=== PATIENT | male | born 1945 | race Asian ===

== ENCOUNTER 2016-09-07 15:49 | Inpatient (IN) | payer OTHER ==
[~2016-09-07] VITALS: Ht 167.6 cm; Wt 66.2 kg
[2016-09-07 17:13] LABS: BASOPHIL % 0.2 % (0-2); PLATELET COUNT 136 x10^3mcL (130-400); RED CELL DISTRIBUTION WIDTH 14.3 % (11.5-14.5)
[2016-09-07 17:28] LABS: CALCIUM 8.4 mg/dL (8.5-10.1); CARBON DIOXIDE 25.3 mmol/L (21-32); CHLORIDE SERUM 101 mmol/L (98-107); CREATININE SERUM 1.2 mg/dL (0.7-1.3); GFR1 > 60 mL/min; GLUCOSE SERUM 125 mg/dL (74-106); POTASSIUM SERUM 3.6 mmol/L (3.5-5.1); SODIUM SERUM 135 mmol/L (136-145)
[2016-09-07 17:32] LABS: ALBUMIN 2.9 g/dL (3.4-5.0); ALKALINE PHOSPHATASE 72 U/L (46-116); ALT/SGPT 89 U/L (16-63); AST/SGOT 136 U/L (15-37); BILIRUBIN TOTAL 0.75 mg/dL (0.20-1.00); CHOLESTEROL 134 mg/dL (<200); HDL CHOLESTEROL 56 mg/dL (40-60); TOTAL PROTEIN, SERUM 6.6 g/dL (6.4-8.2)
[2016-09-07 17:36] LABS: UA SPECIFIC GRAVITY >=1.030 (1.005-1.035); microscopic required? YES; urine erythrocyte 3+ (NEGATIVE)
[2016-09-07 20:07] VITALS: BP 126/68
[2016-09-07 20:15] LABS: T3 TOTAL 0.58 ng/mL
[2016-09-07 20:44] LABS: PHOSPHOROUS 2.6 mg/dL (2.5-4.9)
[2016-09-07 20:52] LABS: CHOLESTEROL/HDL RATIO 2.4
[2016-09-07 20:53] LABS: FREE T4 2.02 ng/dL (0.76-1.46)
[2016-09-07 21:00] LABS: FREE THYROXINE INDEX 5.1 ug/dL (1.4-4.5); T4(THYROXINE) 14.5 ug/dL (4.7-13.3)
[2016-09-07 21:21] VITALS: BP 126/68
[2016-09-07] MEDS ORDERED: LEVOCETIRIZINE D5 M1 PO (21:27)
[2016-09-07] MEDS ORDERED: DITROPAN XL5 MG PO (21:28)
[2016-09-07] MEDS ORDERED: ARICEPT5 MG PO (21:28)
[2016-09-07] MEDS ORDERED: CLOPIDOGREL75 M1 PO (21:29)
[2016-09-07] MEDS ORDERED: ISOSORBIDE MONO30 MG PO (21:30)
[2016-09-07] MEDS ORDERED: LIPI10 PO (21:30)
[2016-09-07] MEDS ORDERED: NATURE'S BLEND F1 MG PO (21:31)
[2016-09-07] MEDS ORDERED: AMIODARONE HCL200 MG PO (21:31)
[2016-09-07] MEDS ORDERED: METFORMIN HCL500 MG PO ×2 (21:31→21:33)
[2016-09-07] MEDS ORDERED: FLO4 PO (21:33)
[2016-09-07] MEDS ORDERED: FINASTERIDE5 M1 PO (21:34)
[2016-09-08 00:23] LABS: UA SPECIFIC GRAVITY <=1.005 (1.005-1.035); microscopic required? YES; urine erythrocyte 2+ (NEGATIVE)
[2016-09-08 05:20] VITALS: BP 131/66
[2016-09-08 06:22] LABS: BASOPHIL % 0.1 % (0-2); PLATELET COUNT 132 x10^3mcL (130-400); RED CELL DISTRIBUTION WIDTH 14.3 % (11.5-14.5)
[2016-09-08 06:37] LABS: CALCIUM 8.1 mg/dL (8.5-10.1); CARBON DIOXIDE 23.6 mmol/L (21-32); CHLORIDE SERUM 106 mmol/L (98-107); CREATININE SERUM 1.1 mg/dL (0.7-1.3); GFR1 > 60 mL/min; GLUCOSE SERUM 129 mg/dL (74-106); MAGNESIUM 1.9 mg/dL (1.8-2.4); PHOSPHOROUS 2.4 mg/dL (2.5-4.9); POTASSIUM SERUM 3.9 mmol/L (3.5-5.1); SODIUM SERUM 137 mmol/L (136-145)
[2016-09-08 09:16] VITALS: BP 122/68
[2016-09-08 14:00] VITALS: BP 113/68
[2016-09-08] MEDS ORDERED: LEVAQUIN750 MG PO (14:52)
[2016-09-08 15:07] VITALS: BP 113/68
[2016-09-08 16:35] VITALS: BP 113/68
== END 2016-09-08 20:10 | disposition home or self-care (01) | DRG 690 ==
LOC: ED 15:49 → DU 18:38
PROVIDERS: Emergency Medicine; ADMIT Family Medicine
DX: N12 Tubulo-interstitial nephritis, not specified as acute or chronic (principal); R65.10 Systemic inflammatory response syndrome (SIRS) of non-infectious origin without acute organ dysfunction; E44.0 Moderate protein-calorie malnutrition; E87.1 Hypo-osmolality and hyponatremia; D68.69 Other thrombophilia; N17.0 Acute kidney failure with tubular necrosis; E11.9 Type 2 diabetes mellitus without complications; G89.29 Other chronic pain; M54.5 Low back pain; R80.8 Other proteinuria; R31.9 Hematuria, unspecified; D64.89 Other specified anemias; E83.39 Other disorders of phosphorus metabolism
CPT/HCPCS: 82962; 83880; 84439; 97110-GP; 97530-GP; J1100; J1956; J2405; J7030; Q0092